=== PATIENT | female | born 1970 | race American Indian/Alaskan Native ===

== ENCOUNTER 2018-01-25 14:57 | Emergency (ER) | payer OTHER ==
[2018-01-25] MEDS ORDERED: NACL 0.9% 1000 ML 1,000 ML IV ONE (15:30)
[2018-01-25 15:49] LABS: Basophils # (Auto) 0.1 K/mm3 (0.0-0.1); Basophils % (Auto) 0.8 % (0.0-1.8); Eosinophils # (Auto) 0.9 K/mm3 (0.0-0.4); Eosinophils % (Auto) 9.9 % (0.0-4.3); Hematocrit 37.8 % (30.3-42.9); Hemoglobin 12.8 gm/dl (10.1-14.3); Lymphocytes # (Auto) 3.4 K/mm3 (1.2-5.4); Lymphocytes % (Auto) 37.5 % (13.4-35.0); Mean Corpuscular HGB Conc 34 % (30-34); Mean Corpuscular Hemoglobin 31 pg (28-32); Mean Corpuscular Volume 91 fl (79-97); Monocytes # (Auto) 0.5 K/mm3 (0.0-0.8); Monocytes % (Auto) 5.9 % (0.0-7.3); Platelet Count 186 K/mm3 (140-440); Red Blood Count 4.16 M/mm3 (3.65-5.03)
[2018-01-25 16:09] LABS: Bilirubin,Urine NEG (Negative); Blood,Urine NEG (Negative); Color,Urine Yellow (Yellow); Mucus,Urine FEW /HPF; Protein,Urine <15 mg/dL mg/dL (Negative)
[2018-01-25] MEDS ORDERED: TORADOL IV ONE (16:18)
[2018-01-25] MEDS ORDERED: PEPCID IV ONE (16:18)
[2018-01-25] MEDS ORDERED: BENTYL IM ONE (16:18)
--- NOTE | 2018-01-25 16:21 | Emergency Department Report ---
Blank Doc - Documentation Documentation: Patient is a 47-year-old [place] female who states for the past 4 days she's had nausea vomiting diarrhea right lower quadrant pain. Patient states the day prior to her symptoms started she ate hamburger thinks may have caused her symptoms. On focused physical exam patient has right lower quadrant tenderness with no rebound. Patient will have labs done as well as a CT of the abdomen and pelvis to rule out appendicitis or other surgical causes of her pain. Patient will be reassessed
--- NOTE | 2018-01-25 16:23 | Emergency Department Report ---
ED Abdominal Pain HPI - General Chief Complaint: Abdominal Pain Stated Complaint: LOWER RT SIDE PAIN Time Seen by Provider: 01/25/18 16:10 Source: patient Mode of arrival: Ambulatory Limitations: No Limitations - History of Present Illness Initial Comments: Patient is a 47-year-old [place] female who states for the past 3 days she's had nausea vomiting diarrhea right lower quadrant pain. Patient states the day prior to her symptoms started she ate hamburger thinks may have caused her symptoms. Patient reports her pain is 8/10 and cramping to her right lower quadrant. She said pain is constant and no alleviating factor or exacerbating factors. She reports that she is having nausea vomiting and and some diarrhea. Reports chills. Denies any urinary burning, frequency or urgency. Denies any back pain. Denies any cough or congestion. Denies any vaginal bleeding or discharge. MD Complaint: abdominal pain Onset/Timin -: days(s) Location: RLQ Radiation: none Migration to: no migration Severity: severe Severity scale (0 -10): 8 Quality: cramping Consistency: constant Improves With: nothing Worsens With: nothing Context: possible food poisoning Associated Symptoms: nausea, vomiting, diarrhea, chills. denies: fever, constipation, dysuria, hematemesis, hematochezia, melena, hematuria, anorexia, syncope Treatments Prior to Arrival: other (none) - Related Data Previous Rx's Medication Instructions Recorded Last Taken Type Dicyclomine [Bentyl] 40 mg PO QID 3 Days #12 tablet 01/25/18 Unknown Rx Famotidine [Pepcid] 20 mg PO BID 6 Days #12 tablet 01/25/18 Unknown Rx Ondansetron [Zofran ODT TAB] 8 mg PO Q8HR PRN #15 tab.rapdis 01/25/18 Unknown Rx Allergies Allergy/AdvReac Type Severity Reaction Status Date / Time acetaminophen [From Percocet] Allergy Unknown Verified 01/25/18 17:52 fish derived Allergy Nausea Verified 01/25/18 17:53 hydroxyzine [From Vistaril] Allergy Unknown Verified 01/25/18 17:53 oxycodone [From Percocet] Allergy Unknown Verified 01/25/18 17:52 codeine AdvReac Unknown Verified 01/25/18 15:30 ED Review of Systems ROS: Stated complaint: LOWER RT SIDE PAIN Other details as noted in HPI Constitutional: chills. denies: fever Eyes: denies: eye pain, eye discharge, vision change ENT: denies: ear pain, throat pain, congestion Respiratory: denies: cough, shortness of breath, SOB with exertion, SOB at rest , stridor, wheezing Cardiovascular: denies: chest pain, palpitations, edema, syncope Gastrointestinal: abdominal pain, nausea, vomiting. denies: diarrhea, constipation Genitourinary: denies: urgency, dysuria, frequency, hematuria, discharge Musculoskeletal: denies: back pain, joint swelling, arthralgia Skin: denies: rash, lesions Neurological: denies: headache, weakness, vertigo ED Past Medical Hx - Past Medical History Previous Medical History?: Yes Hx Hypertension: Yes - Surgical History Past Surgical History?: Yes Hx Cholecystectomy: Yes Additional Surgical History: C section - Family History Family history: hypertension - Social History Smoking Status: Former Smoker Substance Use Type: None - Medications Home Medications: Home Medications Medication Instructions Recorded Confirmed Last Taken Type Dicyclomine [Bentyl] 40 mg PO QID 3 Days #12 tablet 01/25/18 Unknown Rx Famotidine [Pepcid] 20 mg PO BID 6 Days #12 tablet 01/25/18 Unknown Rx Ondansetron [Zofran ODT TAB] 8 mg PO Q8HR PRN #15 tab.rapdis 01/25/18 Unknown Rx ED Physical Exam - General Limitations: No Limitations General appearance: alert, in no apparent distress - Head Head exam: Present: atraumatic, normocephalic, normal inspection, other - Eye Eye exam: Present: normal appearance, PERRL, EOMI Pupils: Present: normal accommodation - ENT ENT exam: Present: normal exam, normal orophraynx, mucous membranes moist - Neck Neck exam: Present: normal inspection, full ROM. Absent: tenderness - Respiratory Respiratory exam: Present: normal lung sounds bilaterally. Absent: respiratory distress, chest wall tenderness - Cardiovascular Cardiovascular Exam: Present: regular rate, normal rhythm, normal heart sounds, systolic murmur - GI/Abdominal GI/Abdominal exam: Present: soft, tenderness (right right lower quadrant), normal bowel sounds. Absent: distended, guarding, rebound, rigid, organomegaly , mass, bruit, pulsatile mass, hernia - Extremities Exam Extremities exam: Present: normal inspection, full ROM, normal capillary refill , other (No cce. + 2 pulses in all extremities, no neurovascular compromise). Absent: tenderness, pedal edema, joint swelling, calf tenderness - Back Exam Back exam: Present: normal inspection, full ROM, other (ambulate without any difficulties). Absent: tenderness, CVA tenderness (R), CVA tenderness (L), muscle spasm, paraspinal tenderness, vertebral tenderness, rash noted - Neurological Exam Neurological exam: Present: alert, oriented X3, normal gait, reflexes normal. Absent: motor sensory deficit - Psychiatric Psychiatric exam: Present: normal affect, normal mood - Skin Skin exam: Present: warm, dry, intact, normal color. Absent: rash ED Course Vital Signs 01/25/18 01/25/18 01/25/18 15:27 16:28 17:35 Temperature 99.3 F Pulse Rate 80 Respiratory 16 16 18 Rate Blood Pressure 164/99 O2 Sat by Pulse 99 Oximetry Vital Signs 01/25/18 01/25/18 01/25/18 15:27 16:28 17:35 Temperature 99.3 F Pulse Rate 80 Respiratory 16 16 18 Rate Blood Pressure 164/99 O2 Sat by Pulse 99 Oximetry 01/25/18 20:16 Temperature Pulse Rate 69 Respiratory Rate Blood Pressure 193/83 O2 Sat by Pulse 99 Oximetry - Reevaluation(s) Reevaluation #1: 01/25/18 16:39 Patient is stable and was seen by Dr. Lopez and screened. CT scan of labs ordered. Patient abdominal exam with tenderness to palpate to right lower quadrant without any guarding or rebound. Started on IV fluid normal saline, Bentyl by mouth, Pepcid IV, Zofran IV Reevaluation #2: 01/25/18 18:13 Patient reports that she was having right-sided chest pain that feels sharp. Chest pain recently preprinted is supple right chest below breast EKG done and sinus rhythm. Troponin ordered, patient's to be given 325 milligrams of aspirin. Reevaluation #3: 01/25/18 18:57 Patient is feeling a lot better. EKG stable and chest pain has resolved. Troponin normal level. Chest x-ray no acute findings. Reevaluation #4: 01/25/18 19:40 Patient reports that she is feeling a lot better. She is no longer having chest pain. No nausea or vomiting or abdominal pain at present. Patient able to tolerate oral liquids. ED Medical Decision Making - Lab Data Result diagrams: 01/25/18 15:37 01/25/18 15:37 Lab Results 01/25/18 01/25/18 01/25/18 Range/Units 15:37 15:37 15:37 WBC 9.0 (4.5-11.0) K/mm3 RBC 4.16 (3.65-5.03) M/mm3 Hgb 12.8 (10.1-14.3) gm/dl Hct 37.8 (30.3-42.9) % MCV 91 (79-97) fl MCH 31 (28-32) pg MCHC 34 (30-34) % RDW 14.0 (13.2-15.2) % Plt Count 186 (140-440) K/mm3 Lymph % (Auto) 37.5 H (13.4-35.0) % [place] % (Auto) 5.9 (0.0-7.3) % Eos % (Auto) 9.9 H (0.0-4.3) % Baso % (Auto) 0.8 (0.0-1.8) % Lymph # 3.4 (1.2-5.4) K/mm3 [place] # 0.5 (0.0-0.8) K/mm3 Eos # 0.9 H (0.0-0.4) K/mm3 Baso # 0.1 (0.0-0.1) K/mm3 Seg Neutrophils % 45.9 (40.0-70.0) % Seg Neutrophils # 4.1 (1.8-7.7) K/mm3 Sodium 140 (137-145) mmol/L Potassium 4.1 (3.6-5.0) mmol/L Chloride 102.5 (98-107) mmol/L Carbon Dioxide 27 (22-30) mmol/L Anion Gap 15 mmol/L BUN 7 (7-17) mg/dL Creatinine 0.7 (0.7-1.2) mg/dL Estimated GFR > 60 ml/min BUN/Creatinine Ratio 10 % Glucose 90 (65-100) mg/dL Calcium 8.9 (8.4-10.2) mg/dL Total Bilirubin 0.20 (0.1-1.2) mg/dL AST 48 H (5-40) units/L ALT 40 (7-56) units/L Alkaline Phosphatase 106 (35-129) units/L Total Protein 7.4 (6.3-8.2) g/dL Albumin 4.2 (3.9-5) g/dL Albumin/Globulin Ratio 1.3 % HCG, Qual Negative (Negative) Urine Color (Yellow) Urine Turbidity (Clear) Urine pH (5.0-7.0) Ur Specific [place] (1.003-1.030) Urine Protein (Negative) mg/dL Urine Glucose (UA) (Negative) mg/dL Urine Ketones (Negative) mg/dL Urine Blood (Negative) Urine Nitrite (Negative) Urine Bilirubin (Negative) Urine Urobilinogen (<2.0) mg/dL Ur Leukocyte Esterase (Negative) Urine WBC (Auto) (0.0-6.0) /HPF Urine RBC (Auto) (0.0-6.0) /HPF U Epithel Cells (Auto) (0-13.0) /HPF Urine Mucus /HPF 01/25/18 Range/Units 15:46 WBC (4.5-11.0) K/mm3 RBC (3.65-5.03) M/mm3 Hgb (10.1-14.3) gm/dl Hct (30.3-42.9) % MCV (79-97) fl MCH (28-32) pg MCHC (30-34) % RDW (13.2-15.2) % Plt Count (140-440) K/mm3 Lymph % (Auto) (13.4-35.0) % [place] % (Auto) (0.0-7.3) % Eos % (Auto) (0.0-4.3) % Baso % (Auto) (0.0-1.8) % Lymph # (1.2-5.4) K/mm3 [place] # (0.0-0.8) K/mm3 Eos # (0.0-0.4) K/mm3 Baso # (0.0-0.1) K/mm3 Seg Neutrophils % (40.0-70.0) % Seg Neutrophils # (1.8-7.7) K/mm3 Sodium (137-145) mmol/L Potassium (3.6-5.0) mmol/L Chloride (98-107) mmol/L Carbon Dioxide (22-30) mmol/L Anion Gap mmol/L BUN (7-17) mg/dL Creatinine (0.7-1.2) mg/dL Estimated GFR ml/min BUN/Creatinine Ratio % Glucose (65-100) mg/dL Calcium (8.4-10.2) mg/dL Total Bilirubin (0.1-1.2) mg/dL AST (5-40) units/L ALT (7-56) units/L Alkaline Phosphatase (35-129) units/L Total Protein (6.3-8.2) g/dL Albumin (3.9-5) g/dL Albumin/Globulin Ratio % HCG, Qual (Negative) Urine Color Yellow (Yellow) Urine Turbidity Clear (Clear) Urine pH 7.0 (5.0-7.0) Ur Specific [place] 1.018 (1.003-1.030) Urine Protein <15 mg/dl (Negative) mg/dL Urine Glucose (UA) Neg (Negative) mg/dL Urine Ketones Neg (Negative) mg/dL Urine Blood Neg (Negative) Urine Nitrite Neg (Negative) Urine Bilirubin Neg (Negative) Urine Urobilinogen 2.0 (<2.0) mg/dL Ur Leukocyte Esterase Tr (Negative) Urine WBC (Auto) 6.0 (0.0-6.0) /HPF Urine RBC (Auto) 2.0 (0.0-6.0) /HPF U Epithel Cells (Auto) 1.0 (0-13.0) /HPF Urine Mucus Few /HPF Troponin is normal - EKG Data -: EKG Interpreted by Me (attending physician) EKG shows normal: sinus rhythm (76 bpm) Rate: normal - EKG Data Interpretation: no acute changes, normal EKG - Radiology Data Radiology results: report reviewed CT scan of abdomen and pelvis with IV contrast dictated by radiologist and report reviewed by myself. Please see details below Patient: DA CODY MR#: [id number] : 1970 Acct:[id number] Age/Sex: 47 / F ADM Date: 01/25/18 Loc: ED Attending Dr: Ordering Physician: TRESSA LOPEZ MD Date of Service: 01/25/18 Procedure(s): CT abdomen pelvis w con Accession Number(s): [id number] cc: TRESSA LOPEZ MD FINAL REPORT EXAM: CT ABDOMEN PELVIS W CON HISTORY: RLQ pain TECHNIQUE: Following IV administration of 100 cc of Omnipaque 300 axial helical imaging was performed through the abdomen and pelvis with sagittal and coronal reformatted images obtained. Delayed axial helical imaging was also performed through the abdomen and pelvis. Comparison: None FINDINGS: The lung bases are without infiltrate, pneumothorax or pleural fluid collection. There is evidence of fatty infiltration/steatosis of the liver. The spleen, pancreas, kidneys and adrenal glands are unremarkable in appearance. The gallbladder is absent with surgical clips in the gallbladder fossa. The bowel is normal caliber. The appendix is normal caliber and contains air. There is a small amount of free fluid in the deep pelvis. There is no evidence of pneumoperitoneum. The abdominal aorta is normal caliber. There is atherosclerotic vascular calcification of the large and medium caliber arteries. There is no evidence of pathologic intra-abdominal adenopathy by CT size criteria. The urinary bladder is moderately distended and unremarkable in appearance. There is a well-defined low attenuation structure in the posterior aspect of the cervix on the left. This measures approximately 2.5 centimeters (lateral) by 2.2 centimeters (AP) by 1.7 centimeter (craniocaudal). This is of unclear etiology but may represent a large nabothian cyst. There is no surrounding inflammatory change. The bony structures are unremarkable in appearance. IMPRESSION: 1. Small amount of free fluid in the deep pelvis. This is nonspecific in appearance but may be physiologic in nature. 2. Well-defined low attenuation structure in the posterior aspect of the cervix on the left that measures approximately 2.5 centimeters in the maximum dimension. This is of unclear etiology but may represent a large nabothian cyst. Comparison with previous imaging studies would be helpful. Pelvic ultrasound may also be helpful for further evaluation. 3. Evidence of fatty infiltration/steatosis of the liver. 4. Atherosclerotic vascular calcification. 5. Status post cholecystectomy. Transcribed By: ED Dictated By: ANGELIA SCHAEFFER MD Electronically Authenticated By: ANGELIA SCHAEFFER MD Signed Date/Time: 01/25/181810 DD/ 10 TD/TT: 01/25/181810 - Medical Decision Making This is a 47-year-old female here report that she was having in nausea vomiting and diarrhea and right lower quadrant abdominal pain that started 2 days ago after she ate burger and fries that her sister gave her. Diagnostics: CT scan of the abdomen and pelvis with contrast shows fatty liver, arteriosclerotic vascular calcification, 2.5 cm Karuna endocervix and the left that may represent large nabothian cyst. Radiology recommends the patient have pelvic ultrasound and I will refer her to outpatient [facility]. Please see details reports in radiology section. Labs: CBC, CMP, lipase stable. HCG negative , urinalysis stable, troponin normal. Patient developed episode of right-sided chest pain that she reports that it felt sharp. EKG stable and troponin is normal. She received aspirin 325 mg by mouth. Patient is stable and chest pain has resolved. Assessment/plan 1: Nausea vomiting diarrhea-resolved. She given normal saline 1 L, Pepcid 20 mg IV and Zofran 4 mg IV. She will be discharged home on Zofran. Also bland diet. She had no episode of diarrhea in emergency room 2: Abdominal pain, right lower quadrant-resolved. Patient given Toradol 30 mg IV and Bentyl 20 mg IM for pain and her pain is now resolved. 3: ATypical chest [id number] normal sinus rhythm and troponin negative. Patient had reproducible chest pain. We will refer to cardiology. Cardiac score 1 and ABNER 0 4: Nabothian cyst suspected-2.5 cm structure seen on CT scan of abdomen and pelvis located in the left pelvic and resemble an nabothian cyst per radiology. Recommends ultrasound follow-up and I discussed with patient that she will need to follow-up with [facility] and I will refer her to [facility] for follow-up. Patient educated on CT scan report, labs, EKG, diagnosis, medication and treatment plan. She is in agreement. I discussed the patient that she will need to follow up with wool sacker, her primary care doctor which she said she needs to be referred to one and also [facility] regarding possible cyst that was seen on CT scan and cervix. Patient does have access but she does not have primary care [facility] so I will refer her and I told her to call tomorrow to schedule an appointment for follow-up visit on Tuesday or Tuesday. I will also refer her to cardiology due to episode of atypical chest pain which is reproducible but because she has high blood pressure refer for follow-up visit. Patient stable, her vital signs stable and she does not have any pain, nausea vomiting or diarrhea. She says she feels better and discharged home in stable condition with prescription for Zofran, Bentyl and Pepcid. I discussed with her that she needs to follow-up bland diet and to stay away from carbonated beverages and spicy food for at least 3 days. And she voiced understanding. - Differential Diagnosis appendicitis, colitis, ovarian cysts, ectopic , UTI, enteritis Critical care attestation.: If time is entered above; I have spent that time in minutes in the direct care of this critically ill patient, excluding procedure time. ED Disposition Clinical Impression: Atypical chest pain, Nausea, vomiting and diarrhea, Nabothian follicles on cervix Abdominal pain Qualifiers: Abdominal location: right lower quadrant Qualified Code(s): R10.31 - Right lower quadrant pain Disposition: MED SCREENING EXAM-CONT Is pt being admited?: No Does the pt Need Aspirin: No Condition: Stable Instructions: Abdominal Pain (ED), Acute Nausea and Vomiting (ED), Nutrition Tips for Relief of Diarrhea (ED), Acute Diarrhea (ED), Chest Pain (ED) Additional Instructions: Please follow up with shellfish bed worker regarding brief episode of chest pain that he had while here in the hospital. He has a history of high blood pressure and although lab and EKG was stable use only follow-up with cardiology. If your chest pain recurs please return to the emergency room [facility] Follow up with gastroenterology regarding in nausea vomiting diarrhea abdominal pain. See referral and discharge instruction paperwork Avoid spicy and carbonated beverages. This will allow his stomach to rest. Eat foods such as bananas, rice, applesauce and toast over the next 72 hours. Bentyl for stomach cramping and Zofran to use for nausea. If your symptoms recurs, please return to emergency room [facility] Increase your fluid intake Follow-up with primary care in 2 days. See Discharge instruction paperwork for primary care. Prescriptions: Dicyclomine [Bentyl] 40 mg PO QID 3 Days #12 tablet Famotidine [Pepcid] 20 mg PO BID 6 Days #12 tablet Ondansetron [Zofran ODT TAB] 8 mg PO Q8HR PRN #15 tab.rapdis PRN Reason: nausea and/or vomiting Referrals: SUNIL TRACY DO [Staff Physician] - 01/27/18 KIESHA GU MD [Staff Physician] - 01/27/18 [facility] [Outside] - 01/27/18 [facility] [Provider Group] - 01/27/18 Forms: Work/School Release Form(ED)
[2018-01-25 16:30] LABS: Alanine Aminotransferase 40 units/L (7-56); Albumin 4.2 g/dL (3.9-5); BUN/Creatinine Ratio 10; Blood Urea Nitrogen 7 mg/dL (7-17); Calcium 8.9 mg/dL (8.4-10.2); Hemolysis Index 28
[2018-01-25] MEDS ORDERED: ZOFRAN IV ONE (16:30)
[2018-01-25] MEDS ORDERED: ASPIRIN PO ONE (17:40)
--- NOTE | 2018-01-25 18:13 | Cat Scan Report ---
FINAL REPORT EXAM: CT ABDOMEN PELVIS W CON HISTORY: RLQ pain TECHNIQUE: Following IV administration of 100 cc of Omnipaque 300 axial helical imaging was performed through the abdomen and pelvis with sagittal and coronal reformatted images obtained. Delayed axial helical imaging was also performed through the abdomen and pelvis. Comparison: None FINDINGS: The lung bases are without infiltrate, pneumothorax or pleural fluid collection. There is evidence of fatty infiltration/steatosis of the liver. The spleen, pancreas, kidneys and adrenal glands are unremarkable in appearance. The gallbladder is absent with surgical clips in the gallbladder fossa. The bowel is normal caliber. The appendix is normal caliber and contains air. There is a small amount of free fluid in the deep pelvis. There is no evidence of pneumoperitoneum. The abdominal aorta is normal caliber. There is atherosclerotic vascular calcification of the large and medium caliber arteries. There is no evidence of pathologic intra-abdominal adenopathy by CT size criteria. The urinary bladder is moderately distended and unremarkable in appearance. There is a well-defined low attenuation structure in the posterior aspect of the cervix on the left. This measures approximately 2.5 centimeters (lateral) by 2.2 centimeters (AP) by 1.7 centimeter (craniocaudal). This is of unclear etiology but may represent a large nabothian cyst. There is no surrounding inflammatory change. The bony structures are unremarkable in appearance. IMPRESSION: 1. Small amount of free fluid in the deep pelvis. This is nonspecific in appearance but may be physiologic in nature. 2. Well-defined low attenuation structure in the posterior aspect of the cervix on the left that measures approximately 2.5 centimeters in the maximum dimension. This is of unclear etiology but may represent a large nabothian cyst. Comparison with previous imaging studies would be helpful. Pelvic ultrasound may also be helpful for further evaluation. 3. Evidence of fatty infiltration/steatosis of the liver. 4. Atherosclerotic vascular calcification. 5. Status post cholecystectomy.
[2018-01-25 20:22] VITALS: BP 193/83
== END 2018-01-25 20:24 | disposition home or self-care (01) ==
LOC: ED 14:57
DX: N88.8 Other specified noninflammatory disorders of cervix uteri (principal); R11.2 Nausea with vomiting, unspecified; R19.7 Diarrhea, unspecified; R07.89 Other chest pain; R10.31 Right lower quadrant pain; I10 Essential (primary) hypertension; Z90.89 Acquired absence of other organs; Z87.891 Personal history of nicotine dependence; Z88.6 Allergy status to analgesic agent; Z88.4 Allergy status to anesthetic agent; Z91.013 Allergy to seafood
CPT/HCPCS: 36415; 74177; 80053; 81001; 84484; 84703; 85025; 93005; 93010; 96372; 96374; 96375; 99284; J0500; J1885; J2405; J7030; Q9967

== ENCOUNTER 2018-09-25 17:18 | Emergency (ER) | payer OTHER ==
--- NOTE | 2018-09-25 18:07 | Emergency Department Report ---
Blank Doc - Documentation Documentation: this is a 48-year-old female that presents with left eye pain with foreign body sensation. Stated believes a piece of glass got into her eye at work. This initial assessment/diagnostic orders/clinical plan/treatment(s) is/are subject to change based on patient's health status, clinical progression and re- assessment by fellow clinical providers in the ED. Further treatment and workup at subsequent clinical providers discretion. Patient/guardians urged not to elope from the ED as their condition may be serious if not clinically assessed and managed. Initial orders include: 1- Patient sent to [facility] for further evaluation and treatment 2- mahajan lamp 3- visual activity
[2018-09-25 18:10] VITALS: BP 167/86
--- NOTE | 2018-09-25 22:31 | Emergency Department Report ---
ED Eye Problem HPI - General Chief complaint: Eye Problems Stated complaint: LFT EYE PAIN Time Seen by Provider: 09/25/18 18:06 Source: patient Mode of arrival: Ambulatory Limitations: No Limitations - History of Present Illness Initial comments: Pt is a 48 yo female who presents to the ED with c/o left eye pain that began on 09/22. 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 She believes she got glass in the eye and immediately washed it out for 30 minutes with water. She has left eye pain and watery discharge from the eye. The patient states she has a foreign body sensation. She denies any vision problems. She denies contact use. - Related Data Previous Rx's Medication Instructions Recorded Last Taken Type Dicyclomine [Bentyl] 40 mg PO QID 3 Days #12 tablet 01/25/18 Unknown Rx Famotidine [Pepcid] 20 mg PO BID 6 Days #12 tablet 01/25/18 Unknown Rx Ondansetron [Zofran ODT TAB] 8 mg PO Q8HR PRN #15 tab.rapdis 01/25/18 Unknown Rx Polymyxin B Sulf/Trimethoprim 2 drops OS QID 10 Days drops 09/25/18 Unknown Rx [Polytrim Eye Drops] Allergies Allergy/AdvReac Type Severity Reaction Status Date / Time acetaminophen [From Percocet] Allergy Unknown Verified 01/25/18 17:52 fish derived Allergy Nausea Verified 01/25/18 17:53 hydroxyzine [From Vistaril] Allergy Unknown Verified 01/25/18 17:53 oxycodone [From Percocet] Allergy Unknown Verified 01/25/18 17:52 codeine AdvReac Unknown Verified 01/25/18 15:30 ED Review of Systems ROS: Stated complaint: LFT EYE PAIN Other details as noted in HPI Comment: All other systems reviewed and negative ED Past Medical Hx - Past Medical History Previous Medical History?: Yes Hx Hypertension: Yes - Surgical History Past Surgical History?: Yes Hx Cholecystectomy: Yes Additional Surgical History: C section - Social History Smoking Status: Never Smoker Substance Use Type: None - Medications Home Medications: Home Medications Medication Instructions Recorded Confirmed Last Taken Type Dicyclomine [Bentyl] 40 mg PO QID 3 Days #12 tablet 01/25/18 Unknown Rx Famotidine [Pepcid] 20 mg PO BID 6 Days #12 tablet 01/25/18 Unknown Rx Ondansetron [Zofran ODT TAB] 8 mg PO Q8HR PRN #15 tab.rapdis 01/25/18 Unknown Rx Polymyxin B Sulf/Trimethoprim 2 drops OS QID 10 Days drops 09/25/18 Unknown Rx [Polytrim Eye Drops] ED Physical Exam - General Limitations: No Limitations General appearance: alert, in no apparent distress - Head Head exam: Present: atraumatic, normocephalic - Eye Eye exam: Present: normal appearance, PERRL, EOMI, conjunctival injection (left eye), other (mahajan lamped used: small corneal laceration, there is circular shaped fluroscein uptake representing a possible corneal ulcer, no foreign body visualized). Absent: scleral icterus, nystagmus, periorbital swelling, periorbital tenderness - ENT ENT exam: Present: mucous membranes moist - Respiratory Respiratory exam: Absent: respiratory distress - Neurological Exam Neurological exam: Present: alert, oriented X3 - Psychiatric Psychiatric exam: Present: normal affect, normal mood - Skin Skin exam: Present: warm, dry, intact ED Course Vital Signs 09/25/18 09/25/18 18:07 20:45 Temperature 98.4 F Pulse Rate 97 H 81 Respiratory 16 16 Rate Blood Pressure 167/86 O2 Sat by Pulse 98 99 Oximetry ED Medical Decision Making - Medical Decision Making Pt is a 48 yo female who presents to the ED with c/o left eye pain that began on 09/22. 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 She believes she got glass in the eye and immediately washed it out for 30 minutes with water. She has left eye pain and watery discharge from the eye. The patient states she has a foreign body sensation. She denies any vision problems. She denies contact use. irrigated with 50 cc of saline used mahajan lamp: corneal laceration/corneal ulceration spoke with dr. nevarez who recommended polytrim eye drops and ophthalmology referral discussed to please follow up within the next 24 hours return to the emergency room for any new or worsening symptoms. Critical care attestation.: If time is entered above; I have spent that time in minutes in the direct care of this critically ill patient, excluding procedure time. ED Disposition Clinical Impression: Corneal laceration Qualifiers: Encounter type: initial encounter Laterality: left Qualified Code(s): S05.32XA - Ocular laceration without prolapse or loss of intraocular tissue, left eye, initial encounter Corneal ulceration Qualifiers: Laterality: left Qualified Code(s): H16.002 - Unspecified corneal ulcer, left eye Disposition: TO HOME OR SELFCARE Is pt being admited?: No Does the pt Need Aspirin: No Condition: Stable Instructions: Corneal Ulcer (ED) Additional Instructions: please follow up with an land surveyor assistant listed several below in the next 24 hours. follow up with primary care doctor in the next 2-3 days. please use medication as prescribed. return to the emergency room for any new or worsening symptoms. Prescriptions: Polymyxin B Sulf/Trimethoprim [Polytrim Eye Drops] 2 drops OS QID 10 Days drops Referrals: KARAN DIXON MD [Primary Care Provider] - 2-3 Days YASEMIN CHAVIS MD [Staff Physician] - ZAK HURTADO MD [Staff Physician] - MARIA INES JUAN JOSE SWENSON MD [Staff Physician] - MARIA INES Time of Disposition: 22:29 Print Language: AMHARIC
== END 2018-09-25 20:45 | disposition home or self-care (01) ==
LOC: ED 17:18
DX: S05.32XA Ocular laceration without prolapse or loss of intraocular tissue, left eye, initial encounter (principal); H16.002 Unspecified corneal ulcer, left eye; I10 Essential (primary) hypertension; Z90.49 Acquired absence of other specified parts of digestive tract; Z88.5 Allergy status to narcotic agent; Z91.013 Allergy to seafood; W25.XXXA Contact with sharp glass, initial encounter; Y93.89 Activity, other specified; Y92.69 Other specified industrial and construction area as the place of occurrence of the external cause; Y99.0 Civilian activity done for income or pay
CPT/HCPCS: 99283; 99284

== ENCOUNTER 2020-01-21 14:12 | Emergency (ER) | payer MEDICARE, OTHER ==
--- NOTE | 2020-01-21 14:20 | Emergency Department Report ---
Blank Doc - Documentation Documentation: 49-year-old female that present near syncope and dizziness with headache. This initial assessment/diagnostic orders/clinical plan/treatment(s) is/are subject to change based on patient's health status, clinical progression and re- assessment by fellow clinical providers in the ED. Further treatment and workup at subsequent clinical providers discretion. Patient/guardians urged not to elope from the ED as their condition may be serious if not clinically assessed and managed. Initial orders include: 1- Patient sent to [facility] for further evaluation and treatment 2- labs 3- UA
[2020-01-21 14:51] LABS: Basophils # (Auto) 0.1 K/mm3 (0.0-0.1); Basophils % (Auto) 0.8 % (0.0-1.8); Eosinophils # (Auto) 0.6 K/mm3 (0.0-0.4); Eosinophils % (Auto) 7.2 % (0.0-4.3); Hematocrit 36.6 % (30.3-42.9); Hemoglobin 12.7 gm/dl (10.1-14.3); Lymphocytes # (Auto) 2.8 K/mm3 (1.2-5.4); Lymphocytes % (Auto) 32.3 % (13.4-35.0); Mean Corpuscular HGB Conc 35 % (30-34); Mean Corpuscular Volume 90 fl (79-97); Monocytes # (Auto) 0.5 K/mm3 (0.0-0.8); Platelet Count 216 K/mm3 (140-440); Red Blood Count 4.08 M/mm3 (3.65-5.03); Red Cell Distribution Width 14.6 % (13.2-15.2)
[2020-01-21 15:10] LABS: Alanine Aminotransferase 51 units/L (7-56); Blood Urea Nitrogen 11 mg/dL (7-17); Calcium 9.5 mg/dL (8.4-10.2); Hemolysis Index 8
[2020-01-21 15:11] LABS: BUN/Creatinine Ratio 16
--- NOTE | 2020-01-21 15:28 | Cat Scan Report ---
CT head/brain wo con INDICATION / CLINICAL INFORMATION: 49 years Female; Syncope. TECHNIQUE: Routine CT head without contrast. All CT scans at this location are performed using CT dos e reduction for ALARA by means of automated exposure control. COMPARISON: None. FINDINGS: BRAIN / INTRACRANIAL CONTENTS: No acute hemorrhage, mass effect, midline shift, hydrocephalus, or acu te, large territorial infarct. No chronic infarct or atrophy appreciated. No significant white matter abnormality. CRANIOCERVICAL JUNCTION: No significant abnormality. ORBITS: No significant abnormality of visualized orbits. SINUSES / MASTOIDS: Mild to moderate mucosal thickening seen in the ethmoids. ADDITIONAL FINDINGS: Prominent soft tissue is seen in the roof the nasopharynx, presumably related to reactive adenoidal tissue. Please clinically correlate. IMPRESSION: 1. No focal mass, hemorrhage, hydrocephalus, or acute, large territorial infarct. Signer Name: Maynor Luther MD, III Signed: 01/21/2020 3:24 PM Workstation Name: [id number]
--- NOTE | 2020-01-21 16:43 | Emergency Department Report ---
ED Syncope HPI - General Chief Complaint: Syncope Stated Complaint: FAINTED Time Seen by Provider: 01/21/20 14:19 Source: patient Exam Limitations: no limitations - History of Present Illness Initial Comments: CC: "I just got a little hot at work." HPI: This is a 49-year-old female with history of hypertension who presents with near syncopal episode. Patient works in a warehouse. She felt flushed and lightheaded. She felt a little too hot. Her coworker caught her as she was going down. She felt faint. She did not pass out. She denies chest federico, she denies palpitations. She states due to "running around", she did not eat enough today and yesterday. She denies use of hormones or contraceptives. No recent travel. She stopped smoking tobacco in May. She is in her normal state of health at this point. Timing/Prior Episodes: no prior history Precipitating Factors: Positive: lightheadedness Context: standing Loss of Consciousness: no loss of consciousness Current Symptoms: back to normal - Related Data Allergies/Adverse Reactions: Allergies acetaminophen [From Percocet] Allergy (Verified 01/25/18 17:52) Unknown fish derived Allergy (Verified 01/25/18 17:53) Nausea hydroxyzine [From Vistaril] Allergy (Verified 01/25/18 17:53) Unknown oxycodone [From Percocet] Allergy (Verified 01/25/18 17:52) Unknown codeine Adverse Reaction (Verified 01/25/18 15:30) Unknown Home Medications: Ambulatory Orders Dicyclomine [Bentyl] 40 mg PO QID 3 Days #12 tablet 01/25/18 Famotidine [Pepcid] 20 mg PO BID 6 Days #12 tablet 01/25/18 Ondansetron [Zofran ODT TAB] 8 mg PO Q8HR PRN #15 tab.rapdis 01/25/18 Polymyxin B Sulf/Trimethoprim [Polytrim Eye Drops] 2 drops OS QID 10 Days drops 09/25/18 ED Review of Systems ROS: Stated complaint: FAINTED Other details as noted in HPI Comment: All other systems reviewed and negative Constitutional: denies: fever, malaise Respiratory: denies: cough, shortness of breath Cardiovascular: denies: chest pain, palpitations Neurological: denies: headache ED Past Medical Hx - Past Medical History Previous Medical History?: Yes Hx Hypertension: Yes - Surgical History Past Surgical History?: Yes Hx Cholecystectomy: Yes Additional Surgical History: C section - Social History Smoking Status: Former Smoker Substance Use Type: None - Medications Home Medications: Home Medications Medication Instructions Recorded Confirmed Last Taken Type Dicyclomine [Bentyl] 40 mg PO QID 3 Days #12 tablet 01/25/18 Unknown Rx Famotidine [Pepcid] 20 mg PO BID 6 Days #12 tablet 01/25/18 Unknown Rx Ondansetron [Zofran ODT TAB] 8 mg PO Q8HR PRN #15 tab.rapdis 01/25/18 Unknown Rx Polymyxin B Sulf/Trimethoprim 2 drops OS QID 10 Days drops 09/25/18 Unknown Rx [Polytrim Eye Drops] ED Physical Exam - General Limitations: No Limitations General appearance: alert, in no apparent distress, other (Appears well, appears comfortable, ambulates without difficulty) - Head Head exam: Present: atraumatic, normocephalic - Eye Eye exam: Present: normal appearance - ENT ENT exam: Present: mucous membranes moist - Neck Neck exam: Present: normal inspection - Respiratory Respiratory exam: Present: normal lung sounds bilaterally. Absent: respiratory distress - Cardiovascular Cardiovascular Exam: Present: regular rate, normal rhythm. Absent: systolic murmur, diastolic murmur, rubs, gallop - GI/Abdominal GI/Abdominal exam: Present: soft, normal bowel sounds. Absent: distended, tenderness, guarding, rebound - Extremities Exam Extremities exam: Present: normal inspection - Neurological Exam Neurological exam: Present: alert, oriented X3 - Psychiatric Psychiatric exam: Present: normal affect, normal mood - Skin Skin exam: Present: warm, dry, intact, normal color. Absent: rash ED Course Vital Signs 01/21/20 14:24 Temperature 97.8 F Pulse Rate 86 Respiratory 18 Rate Blood Pressure 159/80 [Right] O2 Sat by Pulse 96 Oximetry ED Medical Decision Making - Lab Data Result diagrams: 01/21/20 14:33 01/21/20 14:33 - EKG Data -: EKG Interpreted by [facility] EKG shows normal: sinus rhythm, axis, intervals, QRS complexes, ST-T waves Rate: normal - EKG Data Interpretation: normal EKG - Medical Decision Making This Is a 49-year-old female who presents with near syncopal episode while standing in a hot warehouse. PERC negative for PE. No risk factors for structural heart disease or arrhythmia. According to [place] syncope rules, patient is a very low risk for major adverse cardiac event. Patient understands return precautions. I strongly advised her to follow-up with our outpatient medicine physician. Critical care attestation.: If time is entered above; I have spent that time in minutes in the direct care of this critically ill patient, excluding procedure time. ED Disposition Clinical Impression: Near syncope Disposition: DC-01 TO HOME OR SELFCARE Is pt being admited?: No Does the pt Need Aspirin: No Condition: Stable Instructions: Near Syncope (ED) Referrals: KARAN DIXON MD [Staff Physician] - 3-5 Days Forms: Work/School Release Form(ED)
[2020-01-21 17:10] VITALS: BP 151/84
== END 2020-01-21 16:57 | disposition home or self-care (01) ==
LOC: ED 14:12
DX: R55 Syncope and collapse (principal); I10 Essential (primary) hypertension; Z98.890 Other specified postprocedural states; Z90.49 Acquired absence of other specified parts of digestive tract; Z87.891 Personal history of nicotine dependence; Z79.899 Other long term (current) drug therapy; Z91.013 Allergy to seafood; Z88.8 Allergy status to other drugs, medicaments and biological substances; Z88.6 Allergy status to analgesic agent
CPT/HCPCS: 36415; 70450; 80053; 85025; 93005

== ENCOUNTER 2020-05-22 08:18 | Emergency (ER) | payer OTHER, MEDICARE ==
[2020-05-22 08:25] VITALS: BP 154/88
--- NOTE | 2020-05-22 12:12 | Emergency Department Report ---
ED Female HPI - General Chief complaint: Urogenital-Female Stated complaint: VAGINAL BURNING Time Seen by Provider: 05/22/20 08:49 Source: patient Mode of arrival: Ambulatory Limitations: No Limitations - History of Present Illness Initial comments: 49-year-old female presents to ED with complaint of vaginal burning. Patient states a few days ago she had some white discharge and reports her sister told her to use Monistat for yeast infection treatment along with vagisil for vaginal itching. Patient states she is the Monistat on yesterday and used Vagisil this morning. Patient states after the Vagisil use she began having increased discharge and increased vaginal burning. She denies any dysuria, hematuria, frequency, abdominal pain. Patient denies any sexual intercourse in the last 3 to 4 years. MD Complaint: vaginal discharge -: days(s) (3) Severity: mild Quality: burning Consistency: constant Improves with: none Worsens with: none Associated Symptoms: vaginal discharge. denies: vaginal bleeding, abdominal pain, fever/chills - Related Data Sexually active: No Previous Rx's Medication Instructions Recorded Last Taken Type Dicyclomine [Bentyl] 40 mg PO QID 3 Days #12 tablet 01/25/18 Unknown Rx Famotidine [Pepcid] 20 mg PO BID 6 Days #12 tablet 01/25/18 Unknown Rx Ondansetron [Zofran ODT TAB] 8 mg PO Q8HR PRN #15 tab.rapdis 01/25/18 Unknown Rx Polymyxin B Sulf/Trimethoprim 2 drops OS QID 10 Days drops 09/25/18 Unknown Rx [Polytrim Eye Drops] DOXYCYCLINE Hyclate [Vibramycin 100 mg PO Q12HR 7 Days #14 capsule 05/22/20 Unknown Rx CAP] metroNIDAZOLE [Flagyl] 500 mg PO Q12HR 7 Days #14 tab 05/22/20 Unknown Rx Allergies Allergy/AdvReac Type Severity Reaction Status Date / Time acetaminophen [From Percocet] Allergy Unknown Verified 05/22/20 08:22 fish derived Allergy Nausea Verified 05/22/20 08:22 hydroxyzine [From Vistaril] Allergy Unknown Verified 05/22/20 08:22 oxycodone [From Percocet] Allergy Unknown Verified 05/22/20 08:22 codeine AdvReac Unknown Verified 05/22/20 08:22 ED Review of Systems ROS: Stated complaint: VAGINAL BURNING Other details as noted in HPI Comment: All other systems reviewed and negative Constitutional: denies: fever Gastrointestinal: denies: abdominal pain Genitourinary: discharge. denies: dysuria, frequency, hematuria ED Past Medical Hx - Past Medical History Hx Hypertension: Yes Hx Asthma: Yes - Surgical History Hx Cholecystectomy: Yes Additional Surgical History: C section - Social History Smoking Status: Never Smoker Substance Use Type: None - Medications Home Medications: Home Medications Medication Instructions Recorded Confirmed Last Taken Type Dicyclomine [Bentyl] 40 mg PO QID 3 Days #12 tablet 01/25/18 Unknown Rx Famotidine [Pepcid] 20 mg PO BID 6 Days #12 tablet 01/25/18 Unknown Rx Ondansetron [Zofran ODT TAB] 8 mg PO Q8HR PRN #15 tab.rapdis 01/25/18 Unknown Rx Polymyxin B Sulf/Trimethoprim 2 drops OS QID 10 Days drops 09/25/18 Unknown Rx [Polytrim Eye Drops] DOXYCYCLINE Hyclate [Vibramycin 100 mg PO Q12HR 7 Days #14 capsule 05/22/20 Unknown Rx CAP] metroNIDAZOLE [Flagyl] 500 mg PO Q12HR 7 Days #14 tab 05/22/20 Unknown Rx ED Physical Exam - General Limitations: No Limitations General appearance: alert, in no apparent distress - Head Head exam: Present: atraumatic, normocephalic - Eye Eye exam: Present: normal appearance, EOMI - ENT ENT exam: Present: mucous membranes moist - Neck Neck exam: Present: normal inspection - Respiratory Respiratory exam: Present: normal lung sounds bilaterally. Absent: respiratory distress - Cardiovascular Cardiovascular Exam: Present: regular rate, normal rhythm - GI/Abdominal GI/Abdominal exam: Present: soft. Absent: distended, tenderness - Speculum exam: Present: vaginal discharge (Yellowish-green) Bi-manual exam: Absent: cervical motion tendernes - Extremities Exam Extremities exam: Present: normal inspection - Neurological Exam Neurological exam: Present: alert, oriented X3 - Psychiatric Psychiatric exam: Present: normal affect, normal mood - Skin Skin exam: Present: warm, dry, intact, normal color ED Course Vital Signs 05/22/20 08:25 Temperature 98.1 F Pulse Rate 90 Respiratory 24 Rate Blood Pressure 154/88 O2 Sat by Pulse 99 Oximetry Critical care attestation.: If time is entered above; I have spent that time in minutes in the direct care of this critically ill patient, excluding procedure time. ED Disposition Clinical Impression: Bacterial vaginosis, Vaginitis Disposition: TO HOME OR SELFCARE Is pt being admited?: No Condition: Stable Instructions: Vaginitis, [id number], Bacterial Vaginosis, [id number], Bacterial Vaginosis (ED) Prescriptions: metroNIDAZOLE [Flagyl] 500 mg PO Q12HR 7 Days #14 tab DOXYCYCLINE Hyclate [Vibramycin CAP] 100 mg PO Q12HR 7 Days #14 capsule Referrals: [facility] [Provider Group] - 3-5 Days PRIMARY CARE, [Primary Care Provider] - 3-5 Days Forms: STI Treatment and Prevention Time of Disposition: 13:27
[2020-05-22 12:42] LABS: Bacteria,Urine 1+ /HPF (Negative); Bilirubin,Urine NEG (Negative); Blood,Urine NEG (Negative); Color,Urine Yellow (Yellow); Protein,Urine <15 mg/dL mg/dL (Negative)
[2020-05-22] MEDS ORDERED: LIDOCAINE-MPF (1%) 10 MG/1 ML VIAL 5 ML INFILTRATI ONE (12:56)
== END 2020-05-22 14:00 | disposition home or self-care (01) ==
LOC: ED 08:18
DX: N76.0 Acute vaginitis (principal); B96.89 Other specified bacterial agents as the cause of diseases classified elsewhere; I10 Essential (primary) hypertension; J45.909 Unspecified asthma, uncomplicated; Z98.890 Other specified postprocedural states; Z79.899 Other long term (current) drug therapy; Z88.8 Allergy status to other drugs, medicaments and biological substances
CPT/HCPCS: 81001; 87210; 87591; 96372; 99283; J0696

== ENCOUNTER 2020-10-27 00:14 | Emergency (ER) | payer MEDICARE, OTHER | END 2020-10-27 00:30 | disposition left against medical advice (07) | LOC: ED 00:25 | DX: R20.0 Anesthesia of skin (principal); Z53.21 Procedure and treatment not carried out due to patient leaving prior to being seen by health care provider ==

== ENCOUNTER 2020-10-28 18:32 | Emergency (ER) | payer OTHER ==
[2020-10-28 18:55] VITALS: BP 167/88
[2020-10-28] MEDS ORDERED: ASPIRIN 325 MG TAB PO ONE (18:55)
[2020-10-28 19:13] LABS: Basophils # (Auto) 0.1 K/mm3 (0.0-0.1); Basophils % (Auto) 0.8 % (0.0-1.8); Eosinophils # (Auto) 0.4 K/mm3 (0.0-0.4); Eosinophils % (Auto) 4.7 % (0.0-4.3); Hematocrit 37.3 % (30.3-42.9); Hemoglobin 12.9 gm/dl (10.1-14.3); Lymphocytes # (Auto) 2.9 K/mm3 (1.2-5.4); Lymphocytes % (Auto) 31.6 % (13.4-35.0); Mean Corpuscular HGB Conc 35 % (30-34); Mean Corpuscular Volume 91 fl (79-97); Monocytes # (Auto) 0.5 K/mm3 (0.0-0.8); Monocytes % (Auto) 5.9 % (0.0-7.3); Platelet Count 217 K/mm3 (140-440); Red Blood Count 4.11 M/mm3 (3.65-5.03); Red Cell Distribution Width 14.5 % (13.2-15.2)
[2020-10-28 19:37] LABS: Alanine Aminotransferase 36 units/L (7-56); Albumin 4.4 g/dL (3.9-5); Blood Urea Nitrogen 10 mg/dL (7-17); Calcium 9.5 mg/dL (8.4-10.2); Hemolysis Index 6
[2020-10-28 19:43] LABS: BUN/Creatinine Ratio 14
--- NOTE | 2020-10-28 19:54 | XRay Report ---
CHEST PA AND LATERAL VIEWS INDICATION: Chest pain. COMPARISON: None. FINDINGS: Support devices: None. Heart: Within normal limits. Lungs/Pleura: No acute pulmonary or pleural findings. IMPRESSION: 1. No acute findings. Signer Name: Wilmer Dai MD Signed: 10/28/2020 7:49 PM Workstation Name: [id number]
--- NOTE | 2020-10-30 14:02 | Electrocardiograph Report ---
[facility] Test Date: 2020-10-28 Test Time: 18:58:17 Pat Name: DA CODY Department: Room: Gender: F Complaint Specialist: : 1970 Requested By: ARY MEZA Order Number: [id number] Reading MD: Sruthi Pinzon Measurements Intervals [place] Rate: 87 P: 52 AK: 132 QRS: 46 QRSD: 75 T: 42 QT: 351 QTc: 423 Interpretive Statements Sinus rhythm Poor R wave progression No previous ECG available for comparison Electronically Signed On 10-30-2020 14:02:20 EDT by Sruthi Pinzon
== END 2020-10-28 22:00 | disposition left against medical advice (07) ==
LOC: ED 18:32
DX: R07.89 Other chest pain (principal); Z53.21 Procedure and treatment not carried out due to patient leaving prior to being seen by health care provider
CPT/HCPCS: 36415; 71046; 80053; 84484; 85025; 93005